=== PATIENT | male | born 1995 | race Caucasian/White ===

== ENCOUNTER 2019-04-26 09:18 | Inpatient (IN) | payer BC ==
[2019-04-26] MEDS: SOD CHLORIDE 0.9% 1,000 ML IV ×5 (11:04→22:38)
[2019-04-26 11:08] LABS: ADD MAN DIFF? NO
[2019-04-26 11:11] LABS: WHITE BLOOD COUNT 8.4 10^3/ul (4.8-10.8)
[2019-04-26 11:11] LABS: BASOPHILS % 0.2 % (0.0-2.0); EOSINOPHILS # 0.1 10^3/ul (0.0-0.5); EOSINOPHILS % 1.4 % (0.0-7.0); HEMATOCRIT 46.8 % (42.0-52.0); HEMOGLOBIN 16.4 g/dl (14.0-18.0); LYMPHOCYTES # 2.2 10^3/ul (0.8-2.9); LYMPHOCYTES % 26.3 % (15.0-51.0); MEAN CORPUSCULAR VOLUME 91.2 fl (82.0-101.0); MEAN PLATELET VOLUME 10.2 fl (7.4-10.4); MONOCYTE # 0.8 10^3/ul (0.3-0.9); MONOCYTES % 9.7 % (0.0-11.0); NEUTROPHIL # 5.2 10^3/ul (1.6-7.5); NEUTROPHILS % 62.2 % (39.0-77.0); PLATELET COUNT 231 10^3/UL (140-415); RED BLOOD COUNT 5.13 10^6/ul (4.70-6.10)
[2019-04-26 11:18] LABS: ADD UMIC YES; UR ASCORBIC ACID NEGATIVE (NEGATIVE); UR BILIRUBIN (Dip) NEGATIVE (NEGATIVE); UR BLOOD (Dip) 2+ mg/dL (NEGATIVE); UR CLARITY CLEAR (CLEAR); UR COLOR YELLOW (YELLOW); UR GLUCOSE (Dip) NEGATIVE (NEGATIVE); UR KETONES (Dip) NEGATIVE (NEGATIVE); UR LEUKOCYTE ESTERASE (Dip) NEGATIVE Leu/ul (NEGATIVE); UR MUCUS FEW /HPF (NONE SEEN); UR NITRITE (Dip) NEGATIVE (NEGATIVE); UR RBC 1 /HPF (0-5); UR SPECIFIC GRAVITY (Dip) 1.014 (1.003-1.030); UR TOTAL PROTEIN (Dip) NEGATIVE (NEGATIVE); UR UROBILINOGEN (Dip) NEGATIVE (NEGATIVE); UR WBC 1 /HPF (0-5)
[2019-04-26 11:30] LABS: ALANINE AMINOTRANSFERASE 341 IU/L (13-69); ALBUMIN 4.5 g/dl (3.3-4.9); ALBUMIN/GLOBULIN RATIO 1.36; ALKALINE PHOSPHATASE 84 IU/L (42-121); ANION GAP 8 (5-13); BLOOD UREA NITROGEN 14 mg/dl (7-20); CALCIUM 9.6 mg/dl (8.4-10.2); CARBON DIOXIDE 29 mmol/L (21-31); CHLORIDE 101 mmol/L (97-110); CREATININE 0.96 mg/dl (0.61-1.24); Estimated GFR > 60 mL/min (>60); GLUCOSE 93 mg/dl (70-220); POTASSIUM 3.8 mmol/L (3.5-5.1); SODIUM 138 mmol/L (135-144); TOTAL PROTEIN 7.8 g/dl (6.1-8.1)
[2019-04-26 11:59] LABS: ASPARTATE AMINO TRANSFERASE 1414 IU/L (15-46)
[2019-04-26 12:37] LABS: CREATINE KINASE 69598 IU/L (23-200)
[2019-04-26] MEDS ORDERED: ACETAMINOPHEN 325 MG TAB PO ×2 (14:00)
[2019-04-26] MEDS ORDERED: ONDANSETRON 4 MG INJ IV ×2 (14:00)
[2019-04-26] MEDS ORDERED: traMADol 50 MG TAB PO (14:00)
[2019-04-26] MEDS ORDERED: NACL 0.9% 3 ML SYG IV (14:00)
[2019-04-26] MEDS: KETOROLAC 15 MG INJ IV (15:36)
[2019-04-26] MEDS: BUPROPION (XL) 150 MG TAB PO (21:25)
[2019-04-26] MEDS: ESCITALOPRAM 10 MG TAB PO (21:25)
[2019-04-26] MEDS: FAMOTIDINE 20 MG TAB PO (21:25)
[2019-04-27] MEDS: SOD CHLORIDE 0.9% 1,000 ML IV ×5 (03:14→21:33)
[2019-04-27 06:14] LABS: ADD MAN DIFF? NO
[2019-04-27 06:18] LABS: WHITE BLOOD COUNT 6.7 10^3/ul (4.8-10.8)
[2019-04-27 06:18] LABS: BASOPHILS % 0.4 % (0.0-2.0); EOSINOPHILS # 0.2 10^3/ul (0.0-0.5); EOSINOPHILS % 2.2 % (0.0-7.0); HEMATOCRIT 39.6 % (42.0-52.0); HEMOGLOBIN 13.7 g/dl (14.0-18.0); LYMPHOCYTES % 29.5 % (15.0-51.0); MEAN CORPUSCULAR HEMOGLOBIN 32.1 pg (29.0-33.0); MEAN CORPUSCULAR HGB CONC 34.6 g/dl (32.0-37.0); MEAN CORPUSCULAR VOLUME 92.7 fl (82.0-101.0); MEAN PLATELET VOLUME 10.6 fl (7.4-10.4); MONOCYTE # 0.7 10^3/ul (0.3-0.9); MONOCYTES % 10.7 % (0.0-11.0); NEUTROPHIL # 3.8 10^3/ul (1.6-7.5); NEUTROPHILS % 57.1 % (39.0-77.0); PLATELET COUNT 192 10^3/UL (140-415); RED BLOOD COUNT 4.27 10^6/ul (4.70-6.10); RED CELL DISTRIBUTION WIDTH 12.3 % (11.5-14.5)
[2019-04-27 06:52] LABS: ALANINE AMINOTRANSFERASE 268 IU/L (13-69); ALBUMIN 3.2 g/dl (3.3-4.9); ALBUMIN/GLOBULIN RATIO 1.39; ALKALINE PHOSPHATASE 61 IU/L (42-121); ANION GAP 3 (5-13); BILIRUBIN,INDIRECT 0.8 mg/dl (0-1.1); BILIRUBIN,TOTAL 0.8 mg/dl (0.2-1.3); BLOOD UREA NITROGEN 11 mg/dl (7-20); CALCIUM 8.6 mg/dl (8.4-10.2); CARBON DIOXIDE 29 mmol/L (21-31); CHLORIDE 107 mmol/L (97-110); Estimated GFR > 60 mL/min (>60); GLUCOSE 90 mg/dl (70-220); POTASSIUM 4.3 mmol/L (3.5-5.1); SODIUM 139 mmol/L (135-144); TOTAL PROTEIN 5.5 g/dl (6.1-8.1)
[2019-04-27 07:39] LABS: CREATINE KINASE 48406 IU/L (23-200)
[2019-04-27 07:44] LABS: ASPARTATE AMINO TRANSFERASE 988 IU/L (15-46)
[2019-04-27] MEDS: FAMOTIDINE 20 MG TAB PO ×2 (08:18→20:23)
[2019-04-27] MEDS: BUPROPION (XL) 150 MG TAB PO (20:23)
[2019-04-27] MEDS: ESCITALOPRAM 10 MG TAB PO (20:23)
[2019-04-28] MEDS: SOD CHLORIDE 0.9% 1,000 ML IV ×2 (01:57→05:46)
[2019-04-28 05:45] LABS: ALANINE AMINOTRANSFERASE 285 IU/L (13-69); ALBUMIN 3.3 g/dl (3.3-4.9); ALBUMIN/GLOBULIN RATIO 1.37; ALKALINE PHOSPHATASE 63 IU/L (42-121); ANION GAP 3 (5-13); BILIRUBIN,INDIRECT 0.5 mg/dl (0-1.1); BILIRUBIN,TOTAL 0.5 mg/dl (0.2-1.3); BLOOD UREA NITROGEN 7 mg/dl (7-20); CARBON DIOXIDE 29 mmol/L (21-31); CHLORIDE 106 mmol/L (97-110); CREATININE 0.78 mg/dl (0.61-1.24); Estimated GFR > 60 mL/min (>60); GLUCOSE 93 mg/dl (70-220); MAGNESIUM 1.9 mg/dl (1.7-2.5); POTASSIUM 4.3 mmol/L (3.5-5.1); SODIUM 138 mmol/L (135-144); TOTAL PROTEIN 5.7 g/dl (6.1-8.1)
[2019-04-28 06:11] LABS: ASPARTATE AMINO TRANSFERASE 849 IU/L (15-46)
[2019-04-28 07:10] LABS: CREATINE KINASE 40446 IU/L (23-200)
[2019-04-28] MEDS: FAMOTIDINE 20 MG TAB PO (08:42)
== END 2019-04-28 09:34 | disposition home or self-care (01) | DRG 558 ==
LOC: FTE 09:18 → MS1 13:34
DX: M62.82 Rhabdomyolysis (principal); F32.9 Major depressive disorder, single episode, unspecified; F41.9 Anxiety disorder, unspecified; F17.200 Nicotine dependence, unspecified, uncomplicated; R74.0 Nonspecific elevation of levels of transaminase and lactic acid dehydrogenase [LDH]
CPT/HCPCS: 80053; 81001; 82550; 83735; 85025; 97161; 99285-25